=== PATIENT | male | born 1975 | race Two or more races ===

== ENCOUNTER 2021-06-12 19:02 | Emergency (ER) | payer OTHER ==
[~2021-06-12] VITALS: Ht 170.2 cm; Wt 76.2 kg
[2021-06-12] MEDS ORDERED: KETOROLAC TROME10 MG PO (21:57)
[2021-06-12] MEDS ORDERED: FLOMAX0.4 MG PO (21:57)
== END 2021-06-12 22:08 | disposition home or self-care (01) ==
LOC: FSED 20:01
DX: M54.5 Low back pain (principal); R10.30 Lower abdominal pain, unspecified; N13.2 Hydronephrosis with renal and ureteral calculous obstruction
CPT/HCPCS: 74176; 99283